=== PATIENT | female | born 1925 | race Caucasian/White ===

== ENCOUNTER 2016-09-23 11:33 | Emergency (ER) | payer OTHER ==
[~2016-09-23] VITALS: Ht 157.5 cm; Wt 46.0 kg
[~2016-09-23 11:33] MED LIST: ASPIR 8181 MG PO; CALCIUM 500 +1 EAC3 PO; ESTRADERM TD; FEXOFENADINE HC60 M1 PO; LEVOTHROID,S0.025 MG PO; NEURONTIN100 MG PO; NEXIUM40 MG PO; ULTRACET1 TABLET PO
[2016-09-23 13:14] LABS: EOSINOPHIL (%) 1.6 % (0-5); EOSINOPHIL COUNT 0.1 K/uL (0-0.3); HEMATOCRIT 39.7 % (36.0-46.0); IMMATURE GRANULOCYTE (%) 0.3 % (0.0-0.7); INSTRUMENT ABS NEUTROPHIL CT 5.2 K/uL; MCH 32.5 PG (29.0-34.0); MCHC 33.8 G/DL (30.0-36.0); MCV 96.4 FL (83-99); MEAN PLAT.VOLUME 10.8 uM^3 (9.5-12.4); MONOCYTE (%) 5.6 % (3-12); MONOCYTE COUNT 0.4 K/uL (0-0.8); NEUTROPHIL (%) 77.4 % (45-76); NEUTROPHIL COUNT 5.2 K/uL (1.8-6.4); PLATELET COUNT 223 K/uL (156-360); RBC DIS.WIDTH-CV 12.3 % (11.8-14.6); RBC DIS.WIDTH-SD 43.7 % (39-53); RED BLOOD COUNT 4.12 M/uL (3.80-5.20); WHITE BLOOD COUNT 6.8 K/uL (4.1-10.2)
[2016-09-23 13:23] LABS: CHLORIDE 104 mEq/L (99-109); POTASSIUM 4.3 mEq/L (3.7-5.4); SODIUM 141 mEq/L (136-147)
[2016-09-23 13:24] LABS: GLUCOSE 104 mg/dL (70-99)
[2016-09-23 13:26] LABS: ANION GAP 8 MEQ/L (2-14)
[2016-09-23 13:28] LABS: GFR ESTIMATE (CALCULATED) > 59 mL/min/
[2016-09-23 13:29] LABS: UREA NITROGEN (BUN) 21 mg/dL (9-23)
[2016-09-23 15:01] VITALS: BP 124/65
== END 2016-09-23 15:02 | disposition home or self-care (01) ==
LOC: EME 11:33
PROVIDERS: Emergency Medicine
DX: I10 Essential (primary) hypertension (principal); K21.9 Gastro-esophageal reflux disease without esophagitis; Z88.6 Allergy status to analgesic agent
CPT/HCPCS: 80048; 85025; 99281; 99283